=== PATIENT | female | born 2000 | race Caucasian/White ===

== ENCOUNTER 2021-01-24 11:27 | Emergency (ER) | payer BC, MEDICAID, OTHER ==
[~2021-01-24] VITALS: Ht 170.2 cm; Wt 88.2 kg
--- NOTE | 2021-01-24 12:11 | NUR ---
PT TO ROOM FROM LOBBY.
--- NOTE | 2021-01-24 12:13 | NUR ---
C/O UPPER ABD PAIN AND FATIGUE X1 WEEK, + VOMITING AFTER EATING, SEEN AT OUT OF TOWN AND WAS TOLD TO FOLLOW UP IF NOT BETTER. PT STATES THEY TOLD HER IT CAN BE AN ULCER FROM GASTRITIS.
[2021-01-24] MEDS ORDERED: AMPH20TA2 PO (12:17)
[2021-01-24] MEDS ORDERED: FLUO20CA19 PO (12:17)
[2021-01-24] MEDS ORDERED: SODIUM CHLORIDE 0.9% 1,000ML IVBOLUS ONE (12:30)
[2021-01-24] MEDS ORDERED: MAALOX/HYOSCYAMINE/LIDOCAINE 45 ML BTL PO ONE (12:30)
[2021-01-24] MEDS ORDERED: FAMOTIDINE 20 MG/2 ML IVPush ONE (12:30)
[2021-01-24] MEDS ORDERED: ONDANSETRON 2MG/ML, 2ML IVPush ONE (12:30)
[2021-01-24] MEDS ORDERED: ONDANSETRON 2MG/ML, 2ML ONE (12:33)
[2021-01-24] MEDS ORDERED: MAALOX/HYOSCYAMINE/LIDOCAINE 45 ML BTL ONE (12:33)
[2021-01-24] MEDS ORDERED: FAMOTIDINE 20 MG/2 ML ONE (12:34)
[2021-01-24 12:39] LABS: BASOPHILS % (AUTO) 1 % (0-1); EOSINOPHILS % (AUTO) 1 % (1-7); LYMPHOCYTES % (AUTO) 29 % (22-44); MEAN CORPUSCULAR HEMOGLOBIN 30.2 pg (27.0-34.8); MEAN CORPUSCULAR HGB CONC 34.4 g/dL (32.4-35.8); MEAN PLATELET VOLUME 9.3 fL (7.4-10.4); MONOCYTES % (AUTO) 12 % (2-9); NEUTROPHILS % (AUTO) 58 % (42-75); PLATELET COUNT 282 x10^3/uL (130-400); RED BLOOD COUNT 4.57 x10^6/uL (3.82-5.3); RED CELL DISTRIBUTION WIDTH 13.5 % (9.6-15.2)
[2021-01-24 12:48] LABS: ALANINE AMINOTRANSFERASE 35 U/L (12-78); ALBUMIN 3.6 g/dL (3.4-5.0); ANION GAP 5 mmol/L (5-15); CALCIUM 8.3 mg/dL (8.5-10.1); CHLORIDE 107 mmol/L (98-107); CREATININE 0.71 mg/dL (0.55-1.02)
[2021-01-24 12:59] LABS: ALKALINE PHOSPHATASE 54 U/L (45-117); BILIRUBIN,TOTAL 0.3 mg/dL (0.2-1.0); TOTAL PROTEIN 7.8 g/dL (6.4-8.2)
[2021-01-24 14:13] LABS: MICROSCOPIC INDICATED
[2021-01-24 15:13] VITALS: BP 125/80
== END 2021-01-24 15:15 | disposition home or self-care (01) ==
LOC: ED 14:26
DX: K29.00 Acute gastritis without bleeding (principal); R10.13 Epigastric pain; K27.3 Acute peptic ulcer, site unspecified, without hemorrhage or perforation; R11.2 Nausea with vomiting, unspecified; Z87.891 Personal history of nicotine dependence
CPT/HCPCS: 36415; 76700; 80053; 81001; 83690; 84443; 84703; 85025; 87086; 93005; 96361; 96374; 96375; 99285; J2405; J7030